=== PATIENT | male | born 1950 | race African-American/Black ===

== ENCOUNTER 2020-12-31 09:40 | Outpatient (CLI) | payer MEDICAID, MEDICARE | END 2020-12-31 09:41 | disposition home or self-care (01) | LOC: RAD-FRANK 09:40 | PROVIDERS: ATTEND Nurse Practitioner Family | DX: M54.6 Pain in thoracic spine (principal); M54.2 Cervicalgia; M47.814 Spondylosis without myelopathy or radiculopathy, thoracic region; M47.812 Spondylosis without myelopathy or radiculopathy, cervical region | CPT/HCPCS: 72040; 72070 ==

== ENCOUNTER 2021-09-27 11:02 | Outpatient (CLI) | payer MEDICARE | END 2021-09-27 11:03 | disposition home or self-care (01) | LOC: RAD-FRANK 11:02 | PROVIDERS: ATTEND Nurse Practitioner Family | DX: M25.562 Pain in left knee (principal) ==

== ENCOUNTER 2025-03-07 07:44 | Outpatient (CLI) | payer OTHER | END 2025-03-07 07:45 | disposition home or self-care (01) | LOC: ULT 07:44 | PROVIDERS: ATTEND Nurse Practitioner Family | DX: Z13.6 Encounter for screening for cardiovascular disorders (principal); Z12.2 Encounter for screening for malignant neoplasm of respiratory organs; F17.210 Nicotine dependence, cigarettes, uncomplicated | CPT/HCPCS: 71271; 76700; 93976 ==